=== PATIENT | female | born 1945 | race Caucasian/White ===

== ENCOUNTER → 2021-06-26 | Outpatient (CLI) | payer MEDICARE ==
[2021-06-26 10:49] LABS: Basophils # (A) 0.04 X 10*3/uL (0.00-0.10); Basophils % (A) 0.5 %; Eosinophils # (A) 0.33 X 10*3/uL (0.04-0.35); Eosinophils % (A) 4.5 %; HCT 45.9 % (37.2-46.3); HGB 14.8 g/dL (12.0-15.0); Immature Grans, Automated 0.3 %; Lymphocytes # (A) 3.61 X 10*3/uL (0.90-5.00); Lymphocytes % (A) 48.8 %; MCH 31.3 pg (27.0-32.0); MCHC 32.2 g/dL (32.0-37.0); Mean Platelet Volume 10.4 fL (9.5-12.2); Monocytes # (A) 0.67 X 10*3/uL (0.20-1.00); Monocytes % (A) 9.1 %; NRBC Per 100 WBC 0 /100 WBCS (0.0-0.0); Neutrophils # (A) 2.72 X 10*3/uL (1.80-7.70); Neutrophils % (A) 36.8 %; Platelet Count 217 X 10*3/uL (140-440); RBC 4.73 X 10*6/uL (4.10-5.20); RDW 13.4 % (11.5-14.5); WBC 7.39 X 10*3/uL (4.50-10.00)
[2021-06-26 11:15] LABS: % Iron Saturation 27.31 (12.00-45.00); ALT 22 U/L (8-44); AST 24 U/L (13-35); African American GFR (CKD) 91.6 (60.0-200.0); Albumin 4.4 g/dL (3.8-4.9); Albumin/Globulin Ratio 1.57 (1.60-3.17); Alkaline Phosphatase 84 U/L (41-126); BUN/Creat Ratio 17.12 Ratio (12.00-20.00); Blood Urea Nitrogen 12.7 mg/dL (9.0-27.0); Calcium 9.3 mg/dL (8.7-10.3); Carbon Dioxide 24.8 mmol/L (20.0-27.5); Chloride 107 mmol/L (96-109); Chol/HDL Ratio 7.87 Ratio; GGT 22 U/L (0-38); Globulin 2.8 g/dL (1.6-3.3); Glucose 99 mg/dL (70-110); Iron 82 ug/dL (50-170); LDL Cholesterol,Calculated 223.3 mg/dL (0.0-131.0); Potassium 4.3 mmol/L (3.5-5.5); Sodium 142 mmol/L (135-145); Total Iron Binding Capacity 301 ug/dL (228-460); Total Protein 7.2 g/dL (6.2-8.2)
[2021-06-26 11:35] LABS: Erythrocyte Sedimentation Rate 17 mm/Hr (0-30)
[2021-06-26 15:06] LABS: Thyroid Peroxidase Antibodies 18.6 U/mL (0.0-33.0)
[2021-06-26 16:12] LABS: Appearance,Urine Cloudy (Clear); Bilirubin,Urine Negative (Negative); Blood,Urine Negative (Negative); Color,Urine Yellow (Yellow); Ketones,Urine Negative (Negative); Nitrite,Urine Negative (Negative); Specific Gravity,Urine 1.022 (1.001-1.030); Urobilinogen,Urine 0.2 (0.2,1.0)
[2021-06-26 16:37] LABS: Bacteria,Urine Trace /HPF (None Seen); Mucus,Urine Present /LPF (None Seen)
== END | disposition home or self-care (01) ==
LOC: LABWHC1 07:38
PROVIDERS: ATTEND Family Medicine
DX: R79.1 Abnormal coagulation profile (principal); E06.3 Autoimmune thyroiditis; E03.9 Hypothyroidism, unspecified; E34.9 Endocrine disorder, unspecified; E78.00 Pure hypercholesterolemia, unspecified; E55.9 Vitamin D deficiency, unspecified; E56.9 Vitamin deficiency, unspecified
CPT/HCPCS: 36415; 80053; 80061; 81001; 82180; 82306; 82728; 82977; 83036; 83525; 83540; 83550; 84439; 84443; 84480; 84481; 84482; 84590; 85025; 85379; 85384; 85652; 86141; 86376

== ENCOUNTER → 2023-05-24 | Outpatient (CLI) | payer MEDICARE ==
--- NOTE | 2023-05-24 14:51 | US ---
EXAMINATION TYPE: US venous doppler duplex LE LT DATE OF EXAM: 05/24/2023 2:13 PM COMPARISON: NONE CLINICAL INDICATION: Female, 77 years old with history of M79.662 PAIN IN LEFT LOWER LEG; pain left c herminio SIDE PERFORMED: Left TECHNIQUE: The lower extremity deep venous system is examined utilizing real time linear array sonog tenisha with graded compression, doppler sonography and color-flow sonography. VESSELS IMAGED: Common Femoral Vein Deep Femoral Vein Greater Saphenous Vein * Femoral Vein Popliteal Vein Small Saphenous Vein * Proximal Calf Veins (* superficial vessels) Left Leg: Negative for DVT IMPRESSION: Grayscale, color doppler, spectral doppler imaging performed of the deep veins of the lo wer extremities. There is normal flow, compressibility, vascular waveforms.
== END | disposition home or self-care (01) ==
LOC: RADUSWWP 13:43
PROVIDERS: ATTEND Internal Medicine
DX: M79.662 Pain in left lower leg (principal)

== ENCOUNTER 2023-12-27 22:52 | Emergency (ER) | payer MEDICARE ==
[2023-12-27] MEDS: SODIUM CHLORIDE 0.9% 1,000 ML IV STA (23:29)
[2023-12-27] MEDS: METOCLOPRAMIDE 5 MG/ML 2 ML VIAL IVP STA (23:29)
[2023-12-27 23:36] LABS: HCT 46.3 % (34.0-46.0); HGB 15.1 gm/dL (11.4-16.0); MCH 31.8 pg (25.0-35.0); MCHC 32.6 g/dL (31.0-37.0); MCV 97.4 fL (80.0-100.0); Mean Platelet Volume 7.8; Platelet Count 277 k/uL (150-450); RBC 4.75 m/uL (3.80-5.40); RDW 13.3 % (11.5-15.5); WBC 15.3 k/uL (3.8-10.6)
[2023-12-27] MEDS: MECLIZINE 12.5 MG TAB PO STA (23:37)
[2023-12-27 23:42] LABS: ALT 27 U/L (4-34); AST 29 U/L (14-36); African American GFR (CKD) >90 (>60 ml/min/1.73 sqM); Albumin 4.5 g/dL (3.5-5.0); Alkaline Phosphatase 97 U/L (38-126); Anion Gap 12 mmol/L; Blood Urea Nitrogen 16 mg/dL (7-17); Calcium 9.3 mg/dL (8.4-10.2); Carbon Dioxide 20 mmol/L (22-30); Chloride 108 mmol/L (98-107); Glucose 121 mg/dL (74-99); Non-African American GFR(CKD) 84 (>60 ml/min/1.73 sqM); Potassium 3.6 mmol/L (3.5-5.1); Sodium 140 mmol/L (137-145); Total Bilirubin 0.7 mg/dL (0.2-1.3); Total Protein 7.3 g/dL (6.3-8.2)
--- NOTE | 2023-12-27 23:55 | ED ---
Dizziness HPI - General Chief Complaint: Dizziness Stated Complaint: Dizziness,vomiting Time Seen by Provider: 12/27/23 22:58 Source: patient, EMS, RN notes reviewed Mode of arrival: EMS Limitations: no limitations - History of Present Illness Initial Comments: 78-year-old female presents emergency department chief complaint of dizziness. Patient presents via EMS. She states she had a sudden onset of some vertigo, dizziness with associated nausea vomiting. She states several years ago she had an episode similar to this. Patient was given Zofran by EMS. She denies any focal weakness denies any headache denies any sudden onset of change in vision or headache or neck pain. Patient has no complaints of palpitations patient states that if she does not move symptoms are resolved. - Related Data Previous Rx's Medication Instructions Recorded Meclizine [Antivert] 25 mg PO TID PRN #15 tab 12/28/23 Ondansetron Odt [Zofran Odt] 4 mg PO Q8HR PRN #10 tab 12/28/23 Allergies Allergy/AdvReac Type Severity Reaction Status Date / Time codeine Allergy Unknown Verified 12/27/23 23:06 Childhood Review of Systems ROS Statement: Those systems with pertinent positive or pertinent negative responses have been documented in the HPI. ROS Other: All systems not noted in ROS Statement are negative. General Exam Limitations: no limitations General appearance: alert, in no apparent distress Head exam: Present: atraumatic, normocephalic, normal inspection Eye exam: Present: normal appearance, PERRL, EOMI. Absent: scleral icterus, conjunctival injection, periorbital swelling ENT exam: Present: normal exam, normal oropharynx, mucous membranes moist Neck exam: Present: normal inspection, full ROM. Absent: tenderness, meningism us, lymphadenopathy Respiratory exam: Present: normal lung sounds bilaterally. Absent: respiratory distress, wheezes, rales, rhonchi, stridor Cardiovascular Exam: Present: regular rate, normal rhythm, normal heart sounds. Absent: systolic murmur, diastolic murmur, rubs, gallop, clicks Neurological exam: Present: alert, oriented X3, CN II-XII intact, reflexes normal. Absent: motor sensory deficit Skin exam: Present: warm, dry, intact, normal color. Absent: rash Course Vital Signs 12/27/23 12/27/23 12/28/23 22:54 22:58 02:08 Temperature 97.4 F L 97.4 F L Pulse Rate 91 73 Respiratory 24 24 16 Rate Blood Pressure 152/66 109/49 O2 Sat by Pulse 99 95 Oximetry EKG Findings - EKG Comments: EKG Findings:: EKG performed at 23: 10 sinus rhythm with a rate of 80 WA 181 QRS 89 QT/QTc 384/419 - EKG Results: EKG: interpreted by ERMD Medical Decision Making - Medical Decision Making Was pt. sent in by a medical professional or institution (, PA, GRAIN ELEVATOR OPERATOR, urgent care, hospital, or correction...) When possible be specific @ -No Did you speak to anyone other than the patient for history (EMS, parent, family, police, friend...)? What history was obtained from this source @ -No Did you review nursing and triage notes (agree or disagree)? Why? @ -I reviewed and agree with nursing and triage notes Were old charts reviewed (outside hosp., previous admission, EMS record, old EKG, old radiological studies, urgent care reports/EKG's, correction records)? Report findings @ -No old charts were reviewed Differential Diagnosis (chest pain, altered mental status, abdominal pain women, abdominal pain men, vaginal bleeding, weakness, fever, dyspnea, syncope, headac he, dizziness, GI bleed, back pain, seizure, CVA, palpatations, mental health, musculoskeletal)? @ -Differential Dizziness: Benign paroxysmal positional Vertigo, Meniere's disease, otitis media, acoustic neuroma, vertebrobasilar insufficiency, cerebellar stroke, encephalitis, hypovolemic, arrhythmia, coronary artery syndrome, anemia, this is not meant to be an all-inclusive list EKG interpreted by me (3pts min.). @ -As above X-rays interpreted by me (1pt min.). @ -None done CT interpreted by me (1pt min.). @ -CT brain without contrast showing no acute intracranial hemorrhage, mass effect CT angio head neck no acute process no occlusions, narrowing noted U/S interpreted by me (1pt. min.). @ -None done What testing was considered but not performed or refused? (CT, X-rays, U/S, labs)? Why? @ -None What meds were considered but not given or refused? Why? @ -None Did you discuss the management of the patient with other professionals (professionals i.e. , PA, GRAIN ELEVATOR OPERATOR, lab, RT, psych nurse, healthcare social worker, medical screener, teacher, parole hearing officer, comp field case manager)? Give summary @ -No Was smoking cessation discussed for >3mins.? @ -No Was critical care preformed (if so, how long)? @ -No Were there social determinants of health that impacted care today? How? (Homelessness, low income, unemployed, alcoholism, drug addiction, transportation, low edu. Level, literacy, decrease access to med. care, [facility], rehab)? @ -No Was there de-escalation of care discussed even if they declined (Discuss DNR or withdrawal of care, Hospice)? DNR status @ -No What co-morbidities impacted this encounter? (DM, HTN, Smoking, COPD, CAD, Cancer, CVA, ARF, Chemo, Hep., AIDS, mental health diagnosis, sleep apnea, morbid obesity)? @ -None Was patient admitted / discharged? Hospital course, mention meds given and route, prescriptions, significant lab abnormalities, going to OR and other pertinent info. @ -[Discharge patient presented for vertigo type symptoms. Patient had persistent vertigo in which CT, CTA were ordered. She did get good relief after Valium, additional antiemetics. She was able to get up and ambulate and felt comfortable with discharge. She has no focal weakness. Patient was offered admission patient declines. Undiagnosed new problem with uncertain prognosis? @ -No Drug Therapy requiring intensive monitoring for toxicity (Heparin, Nitro, Insulin, Cardizem)? @ -No Were any procedures done? @ -No Diagnosis/symptom? @ -Vertigo Acute, or Chronic, or Acute on Chronic? @ -Acute Uncomplicated (without systemic symptoms) or Complicated (systemic symptoms)? @ -Complicated Side effects of treatment? @ -No Exacerbation, Progression, or Severe Exacerbation? @ -No Poses a threat to life or bodily function? How? (Chest pain, USA, CT, pneumonia, PE, COPD, DKA, ARF, appy, cholecystitis, CVA, Diverticulitis, Homicidal, Suicidal, threat to staff... and all critical care pts) @ -No - Lab Data Result diagrams: 12/27/23 23:04 12/27/23 23:04 Lab Results 11/12/24 11/12/24 11/12/24 Range/Units 23:04 23:04 23:04 WBC 15.3 H (3.8-10.6) k/uL RBC 4.75 (3.80-5.40) m/uL Hgb 15.1 (11.4-16.0) gm/dL Hct 46.3 H (34.0-46.0) % MCV 97.4 (80.0-100.0) fL MCH 31.8 (25.0-35.0) pg MCHC 32.6 (31.0-37.0) g/dL RDW 13.3 (11.5-15.5) % Plt Count 277 (150-450) k/uL MPV 7.8 Neutrophils % (Manual) 24 % Lymphocytes % (Manual) 67 % Monocytes % (Manual) 8 % Basophils % (Manual) 1 % Neutrophils # (Manual) 3.67 (1.3-7.7) k/uL Lymphocytes # (Manual) 10.25 H (1.0-4.8) k/uL Monocytes # (Manual) 1.22 H (0-1.0) k/uL Basophils # (Manual) 0.15 (0-0.2) k/uL Nucleated RBCs 0 (0-0) /100 WBC Manual Slide Review Performed Sodium 140 (137-145) mmol/L Potassium 3.6 (3.5-5.1) mmol/L Chloride 108 H (98-107) mmol/L Carbon Dioxide 20 L (22-30) mmol/L Anion Gap 12 mmol/L BUN 16 (7-17) mg/dL Creatinine 0.69 (0.52-1.04) mg/dL Est GFR (CKD-EPI)AfAm >90 (>60 ml/min/1.73 sqM) Est GFR (CKD-EPI)NonAf 84 (>60 ml/min/1.73 sqM) Glucose 121 H (74-99) mg/dL Calcium 9.3 (8.4-10.2) mg/dL Magnesium 2.0 (1.6-2.3) mg/dL Total Bilirubin 0.7 (0.2-1.3) mg/dL AST 29 (14-36) U/L ALT 27 (4-34) U/L Alkaline Phosphatase 97 (38-126) U/L Troponin I <0.012 (0.000-0.034) ng/mL Total Protein 7.3 (6.3-8.2) g/dL Albumin 4.5 (3.5-5.0) g/dL Disposition Clinical Impression: Vertigo Disposition: HOME SELF-CARE Condition: Stable Instructions (If sedation given, give patient instructions): Vertigo (ED) Additional Instructions: Please return to the Emergency Department if symptoms worsen or any other concerns. Prescriptions: Meclizine [Antivert] 25 mg PO TID PRN #15 tab PRN Reason: Vertigo Ondansetron Odt [Zofran Odt] 4 mg PO Q8HR PRN #10 tab PRN Reason: Nausea Is patient prescribed a controlled substance at d/c from ED?: No Referrals: Kasey Orosco MD [Primary Care Provider] - 1-2 days Time of Disposition: 03:09
[2023-12-28 00:17] LABS: Basophils # (M) 0.15 k/uL (0-0.2); Lymphocytes # (M) 10.25 k/uL (1.0-4.8); Monocytes # (M) 1.22 k/uL (0-1.0); Neutrophils # (M) 3.67 k/uL (1.3-7.7); Neutrophils % (M) 24 %; Nucleated Red Blood Cells 0 /100 WBC (0-0); Total Cells Counted 100
[2023-12-28] MEDS: SODIUM CHLORIDE 0.9% 500 ML 500 ML IV STA (00:31)
[2023-12-28] MEDS: ONDANSETRON 4 MG/2 ML VIAL IVP STA (00:31)
--- NOTE | 2023-12-28 01:26 | CT ---
EXAM: CT Head Without Intravenous Contrast CLINICAL HISTORY: ITS.REASON CT Reason: dizziness TECHNIQUE: Axial computed tomography images of the head/brain without intravenous contrast. CTDI is 49.1 mGy and DLP is 1201 mGy-cm. This CT exam was performed using one or more of the following dose reduction techniques: automated exposure control, adjustment of the mA and/or kV according to patient size, and/or use of iterative reconstruction technique. COMPARISON: No relevant prior studies available. FINDINGS: No acute intracranial hemorrhage. No midline shift or mass effect. The territorial ball-white matter differentiation is maintained throughout. Age-related cerebral volume loss. Periventricular and subcortical white matter hypoattenuation, consistent with chronic microangiopathy. The visualized orbits appear grossly unremarkable. The calvarium is intact. The visualized paranasal sinuses and mastoid air cells are grossly clear. IMPRESSION: No acute intracranial hemorrhage, midline shift, or mass effect.
[2023-12-28 02:09] VITALS: RESP 16
--- NOTE | 2023-12-28 02:12 | CT ---
1583 images EXAM: CT Angiography Head With Intravenous Contrast CLINICAL HISTORY: Persistent dizziness TECHNIQUE: Axial computed tomographic angiography images of the head with intravenous contrast. CTDI is 15.5 mGy and DLP is 733.8 mGy-cm. This CT exam was performed using one or more of the following dose reduction techniques: automated exposure control, adjustment of the mA and/or kV according to patient size, and/or use of iterative reconstruction technique. MIP reconstructed images were created and reviewed. Coronal and sagittal reformatted images were created and reviewed. COMPARISON: No relevant prior studies available. FINDINGS: Right internal carotid artery: Small amount of atherosclerotic calcifications in the cavernous portions of bilateral internal carotid arteries. Intracranial segment is patent with no significant stenosis. No aneurysm. Right anterior cerebral artery: Unremarkable. No occlusion or significant stenosis. No aneurysm. Right middle cerebral artery: Unremarkable. No occlusion or significant stenosis. No aneurysm. Right posterior cerebral artery: Unremarkable. No occlusion or significant stenosis. No aneurysm. Right vertebral artery: Unremarkable as visualized. Left internal carotid artery: See above. Left anterior cerebral artery: Unremarkable. No occlusion or significant stenosis. No aneurysm. Left middle cerebral artery: Unremarkable. No occlusion or significant stenosis. No aneurysm. Left posterior cerebral artery: Unremarkable. No occlusion or significant stenosis. No aneurysm. Left vertebral artery: Unremarkable as visualized. Basilar artery: Unremarkable. No occlusion or significant stenosis. No aneurysm. IMPRESSION: No acute findings in the arteries of the head/brain. If acute intracranial infarct is of concern, MRI may help to further evaluate if patient is a candidate. EXAM: CT Neck With Intravenous Contrast CLINICAL HISTORY: Persistent dizziness TECHNIQUE: Routine carotid CT protocol was performed with intravenous contrast. NASCET criteria using the distal ICAs for comparison were used for evaluation of stenoses. CTDI is 15.5 mGy and DLP is 733.8 mGy-cm. This CT exam was performed using one or more of the following dose reduction techniques: automated exposure control, adjustment of the mA and/or kV according to patient size, and/or use of iterative reconstruction technique. Coronal and sagittal reformatted images were created and reviewed. COMPARISON: None. FINDINGS: VASCULATURE: Right common carotid artery: Unremarkable. No occlusion or significant stenosis. No dissection. Right internal carotid artery: Unremarkable. Extracranial segment is patent with no occlusion or significant stenosis. No dissection. Right external carotid artery: Unremarkable. No occlusion. Right vertebral artery: Unremarkable. No occlusion or significant stenosis. No dissection. Left common carotid artery: Unremarkable. No occlusion or significant stenosis. No dissection. Left internal carotid artery: Unremarkable. Extracranial segment is patent with no occlusion or significant stenosis. No dissection. Left external carotid artery: Unremarkable. No occlusion. Left vertebral artery: Unremarkable. No occlusion or significant stenosis. No dissection. Other vasculature: Minimal atherosclerotic calcifications. NECK: Bones/joints: Sternal wires. Osteopenia. Mild to moderate degenerative disc disease. No acute findings. Soft tissues: Unremarkable. Lung apices: Small amount of posterior dependent atelectasis in the visualized lungs. CAROTID STENOSIS REFERENCE USING NASCET CRITERIA: % ICA stenosis = (1 - narrowest ICA diameter/diameter of distal cervical ICA) x 100. Mild - <50% stenosis. Moderate - 50-69% stenosis. Severe - 70-94% stenosis. Near occlusion - 95-99% stenosis. Occluded - 100% stenosis. IMPRESSION: No acute findings in the arteries of the neck.
[2023-12-28 03:26] VITALS: BP 118/69; PULSE 70; TEMP 97.6
[2023-12-28] MEDS: ONDANSETRON 4 MG ODT STARTER PACK 2 TAB BTL PO STA (03:27)
[2023-12-28] MEDS: MECLIZINE 12.5 MG TAB PO STA (03:27)
== END 2023-12-28 03:40 | disposition home or self-care (01) ==
LOC: EC 22:52
DX: R42 Dizziness and giddiness (principal); Z88.5 Allergy status to narcotic agent
CPT/HCPCS: 36415; 93005; 80053; 83735; 84484; 85025; 70496; 70450; 70498; 99285; 96374; 96375 ×2; 96361; J2765; J3360; J2405; S0119; Q9967

== ENCOUNTER → 2024-01-06 | Outpatient (CLI) | payer MEDICARE ==
[2024-01-06 15:26] LABS: Chol/HDL Ratio 7.69 Ratio; LDL Cholesterol,Calculated 227.6 mg/dL (0.0-131.0)
[2024-01-06 15:27] LABS: ALT 29 U/L (8-44); AST 25 U/L (13-35); Albumin 4.2 g/dL (3.8-4.9); Albumin/Globulin Ratio 1.75 Ratio (1.60-3.17); Alkaline Phosphatase 94 U/L (41-126); BUN/Creat Ratio 14.62 Ratio (12.00-20.00); Blood Urea Nitrogen 11.7 mg/dL (9.0-27.0); Calcium 9.5 mg/dL (8.7-10.3); Carbon Dioxide 27.6 mmol/L (21.6-31.8); Chloride 106 mmol/L (96-109); Globulin 2.4 g/dL (1.6-3.3); Glucose 93 mg/dL (70-110); Potassium 4.4 mmol/L (3.5-5.5); Sodium 143 mmol/L (135-145); Total Bilirubin 0.7 mg/dL (0.3-1.2); Total Protein 6.6 g/dL (6.2-8.2)
== END | disposition home or self-care (01) ==
LOC: LABWHC1 08:58
PROVIDERS: ATTEND Internal Medicine Interventional Cardiology
DX: E78.2 Mixed hyperlipidemia (principal)
CPT/HCPCS: 36415; 80053; 80061

== ENCOUNTER → 2024-08-30 | Day surgery (SDC) | payer MEDICARE ==
[~2024-08-30] MED LIST: LIDOCAINE 1% INJ 10MG/ML (20 ML MDV) ONE; PROPOFOL 10 MG/ML 20 ML VIAL IV ONE; Pre Op ABX Message 1 EACH MISC MISCELLANE ONE; ePHEDrine 50 MG/ML 1 ML VIAL ONE; fentaNYL (PF) 50 MCG/ML 2 ML AMP ONE
[2024-08-30] MEDS: IV FLUID CONTINUATION 1,000 ML IV ONE (07:52)
[2024-08-30] MEDS: LACTATED RINGERS 1,000 ML IV SCH (08:28)
[2024-08-30] MEDS: DEXAMETHASONE SOD PHOSPHATE 4 MG/ML 1 ML VIAL IV ONE (08:29)
[2024-08-30] MEDS: ONDANSETRON 4 MG/2 ML VIAL IVP ONE (08:29)
[2024-08-30 09:32] VITALS: TEMP 97
[2024-08-30 09:41] VITALS: RESP 16
--- NOTE | 2024-08-30 09:41 | P.OP ---
Date of Procedure: 08/30/24 Preoperative Diagnosis: 1. Post-menopausal bleeding 2. Thickened endometrium Postoperative Diagnosis: Same Procedure(s) Performed: Hysteroscopy Dilation and Curettage with MyoSure Polypectomy Implants: None Anesthesia: JOSHUA Surgeon: Jocelyne Jhaveri Estimated Blood Loss (ml): 1 IV fluids (ml): 300 Urine output (ml): 50 Pathology: other (endometrial polyp) Condition: stable Disposition: floor Indications for Procedure: Ms. Garcia is a 78 year old female who presents for Hysteroscopy D&C for post- menopausal bleeding and thickened endometrium on pelvic US. Risks, benefits, and alternatives to Hysteroscopy D&C are discussed with the patient including risk of bleeding, infection, uterine perforation, and damage to surrounding structures. The patient understands these risks and desires to proceed with surgery as discussed. All questions are answered. Operative Findings: Large, 2-3 centimeter endometrial polyp occupying nearly of the endometrial cavity. Atrophic background endometrium appreciated. Description of Procedure: Patient is brought to the operating suite and placed in the dorsal lithotomy position. The cervix perineum and lower abdomen are prepped and draped in the usual sterile fashion. Examination under anesthesia reveals an anteverted uterus. Adnexa are negative bilaterally. The bladder is drained for approximately 50 mL of clear yellow urine. The anterior lip of the cervix is grasped with a double toothed tenaculum after the weighted speculum is placed into the vagina. The uterus sounds to a depth of 6 cm in the anteverted position. The Hanks dilators are placed and the cervix was dilated to accomodate the hysteroscope. The hysteroscope was then introduced and with saline infusion the cavity is distended. A large polyp is noted along with atrophic background endometrium. The Myosure Lite is introduced through the hysteroscope and the polyp is resected. The hysteroscopy is then withdrawn from the uterus. Instrumentation is removed from the vagina and the patient is brought to the recovery room in stable condition. All sponge needle and instrument counts are correct. Patient will follow up with me in the office in 2 weeks. Verbal and written instructions are provided.
[2024-08-30 10:32] VITALS: BP 142/73; PULSE 52
== END ==
LOC: OR 07:27
PROVIDERS: ATTEND Obstetrics & Gynecology
DX: N95.0 Postmenopausal bleeding (principal); N84.0 Polyp of corpus uteri; R93.89 Abnormal findings on diagnostic imaging of other specified body structures
CPT/HCPCS: 88305; 58558; J1100; J2405; J2003; J3010; J2704